=== PATIENT | female | born 1990 | race Caucasian/White ===

== ENCOUNTER 2018-09-12 15:15 | Inpatient (IN) ==
[2018-09-12 16:12] LABS: BASO# 0.04 X1000 (0.0-0.2); BASO% 0.2 % (0.0-0.8); EOS# 0.07 X1000 (0.0-0.7); EOS% 0.4 % (0.0-10.0); HEMOGLOBIN 15.2 g/dL (12.0-16.0); IMM GRAN# 0.05 X1000 (0.0-0.04); IMM GRAN% 0.3 % (0.0-0.5); LYMPH# 1.97 X1000 (1.2-3.4); MCH 28.2 PG (27-31); MCHC 35.3 g/dL (33-37); MCV 79.8 FL (81-99); MONO# 2.95 X1000 (0.11-0.59); MONO% 14.9 % (1.7-9.3); MPV 10.9 FL (7.4-10.4); NEUT# 14.68 X1000 (1.4-6.5); NEUT% 74.2 % (42.2-75.2); PLT 356 X1000 (130-400); RBC 5.39 XMIL (4.2-5.4); RDW 12.3 % (11.5-14.5); WBC 19.76 X1000 (4.8-10.8)
[2018-09-12 16:25] LABS: URINE SOURCE CLEAN CATCH
[2018-09-12 16:30] LABS: BILIRUBIN URINE NEGATIVE (NEGATIVE); BLOOD URINE TRACE (NEGATIVE); COLOR ORANGE; GLUCOSE URINE >1000 mg/dL (NEGATIVE); KETONE URINE 10 mg/dL (NEGATIVE); LEUKOCYTES URINE LARGE (NEGATIVE); NITRITE URINE NEGATIVE (NEGATIVE); PROTEIN URINE 50 mg/dL (NEGATIVE); SP GRAVITY URINE 1.032; TURBIDITY URINE TURBID (CLEAR); UROBILINOGEN URINE NORMAL (NORMAL)
[2018-09-12 16:30] LABS: AGAP 15; ALB/GLOB RATIO 1.2; ALBUMIN 4.3 g/dL (3.5-5.0); ALKALINE PHOSPHATASE 87 U/L (32-104); BUN 8 mg/dL (8-22); CALCIUM 9.1 mg/dL (8.8-10.2); CHLORIDE 95 mmol/L (98-107); COSMO 283; CREATININE 0.6 mg/dL (0.5-0.9); ESTIMATED GFR > 60; GLUCOSE 398 mg/dL (70-104); GOT 9 U/L (10-30); GPT 14 U/L (10-36); POTASSIUM 3.9 mmol/L (3.5-5.1); SODIUM 134 mmol/L (136-145); TCO2 24 mmol/L (25-35); TOTAL BILIRUBIN 1.21 mg/dL (0.20-1.00)
[2018-09-12 16:35] LABS: UR EPITHELIAL CELLS >10 /HPF (<10); URINE BACTERIA 4+ /HPF; URINE RBC <10 /HPF (<10); URINE WBC TNTC /HPF (<10)
[2018-09-12 16:41] LABS: URINE CRYSTALS NONE SEEN; URINE YEAST NONE SEEN
[2018-09-12 16:46] LABS: UR AMPHETAMINES QUAL PRESUMPTIVE POSITIVE (NONE DETECT); UR BARBITUATES QUAL NONE DETECTED (NONE DETECT); UR BENZODIAZEPIN QUAL NONE DETECTED (NONE DETECT); UR CANNABINOIDS QUAL NONE DETECTED (NONE DETECT); UR COCAINE QUAL NONE DETECTED (NONE DETECT); UR METHADONE QUAL NONE DETECTED (NONE DETECT); UR OPIATES QUAL NONE DETECTED (NONE DETECT); UR OXYCODONE QUAL NONE DETECTED (NONE DETECT); UR PCP QUAL NONE DETECTED (NONE DETECT)
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
[2018-09-12] MEDS ORDERED: NS 1,000 ML IV ONE ×2 (18:04→23:55)
[2018-09-12] MEDS ORDERED: HUMULIN R IV ONE (18:04)
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
[2018-09-12] MEDS ORDERED: ZOFRAN IV ONE (19:34)
[2018-09-12] MEDS ORDERED: ATIVAN IM ONE ×2 (20:28→23:41)
[2018-09-12] MEDS ORDERED: PHENERGAN IM ONE (23:41)
[2018-09-12] MEDS ORDERED: BENADRYL IV ONE (23:55)
[2018-09-13] MEDS ORDERED: ROCEPHIN 1 GM in NS 50 ML IV ONE (02:00)
[2018-09-13] MEDS ORDERED: NS 2,000 ML IV ONE (02:26)
[2018-09-13] MEDS ORDERED: ATIVAN IV ONE (03:33)
[2018-09-13] MEDS ORDERED: PHENOBARBITAL IV ONE ×2 (04:43→05:30)
[2018-09-13 05:29] LABS: HEMOGLOBIN A1C 9.4 % (4.8-6.0)
[2018-09-13] MEDS ORDERED: ZOFRAN IV PRN (05:29)
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
--- NOTE | 2018-09-13 08:03 | EKG Report ---
Test Performed on : 09/12/2018 3:32:20 PM Test Reason : TACHYCARDIA Blood Pressure : / mmHG Vent. Rate : 135 BPM Atrial Rate : 135 BPM P-R Int : 134 ms QRS Dur : 076 ms QT Int : 294 ms P-R-T Axes : 090 090 090 degrees QTc Int : 441 ms Suspect arm lead reversal, interpretation assumes no reversal Sinus tachycardia. Rightward axis Borderline ECG When compared with ECG of 12-SEP-2018 15:31, (Unconfirmed) No significant change was found Unconfirmed Result
[2018-09-13 10:15] LABS: BASO# 0.03 X1000 (0.0-0.2); BASO% 0.2 % (0.0-0.8); EOS# 0.02 X1000 (0.0-0.7); EOS% 0.1 % (0.0-10.0); HEMATOCRIT 38.5 % (37.0-47.0); HEMOGLOBIN 13.4 g/dL (12.0-16.0); IMM GRAN# 0.05 X1000 (0.0-0.04); IMM GRAN% 0.3 % (0.0-0.5); LYMPH# 2.07 X1000 (1.2-3.4); LYMPH% 12.3 % (20.5-51.1); MCH 28.6 PG (27-31); MCHC 34.8 g/dL (33-37); MCV 82.3 FL (81-99); MONO# 0.84 X1000 (0.11-0.59); MPV 10.8 FL (7.4-10.4); NEUT# 13.76 X1000 (1.4-6.5); NEUT% 82.1 % (42.2-75.2); PLT 273 X1000 (130-400); RBC 4.68 XMIL (4.2-5.4); RDW 12.3 % (11.5-14.5); WBC 16.77 X1000 (4.8-10.8)
[2018-09-13 10:29] LABS: AGAP 12; BUN 9 mg/dL (8-22); CALCIUM 8.1 mg/dL (8.8-10.2); CHLORIDE 102 mmol/L (98-107); COSMO 280; CREATININE 0.5 mg/dL (0.5-0.9); ESTIMATED GFR > 60; GLUCOSE 201 mg/dL (70-104); MAGNESIUM 1.6 mg/dL (1.5-2.7); SODIUM 138 mmol/L (136-145); TCO2 24 mmol/L (25-35)
[2018-09-13] MEDS: HUMALOG SUBQ SCH ×4 (11:08→21:04)
[2018-09-13] MEDS: NS 1,000 ML IV SCH ×3 (11:15→21:04)
[2018-09-13] MEDS: ATIVAN IV PRN ×4 (11:16→21:05)
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
[2018-09-13] MEDS: GEODON IM PRN (17:45)
[2018-09-13] MEDS: STERILE WATER INJ. INJ PRN (17:46)
[2018-09-14] MEDS: ROCEPHIN 1 GM in NS 50 ML IV SCH (02:59)
[2018-09-14] MEDS: GEODON IM PRN (03:00)
[2018-09-14] MEDS: NS 1,000 ML IV SCH ×3 (05:25→20:34)
[2018-09-14] MEDS: HUMALOG SUBQ SCH ×4 (06:31→20:34)
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
[2018-09-14] MEDS: TYLENOL PO PRN (20:34)
[2018-09-15] MEDS: ROCEPHIN 1 GM in NS 50 ML IV SCH (01:48)
[2018-09-15] MEDS: NS 1,000 ML IV SCH ×4 (05:45→23:21)
[2018-09-15] MEDS: HUMALOG SUBQ SCH ×4 (06:20→21:58)
[2018-09-15 06:25] LABS: BASO# 0.02 X1000 (0.0-0.2); BASO% 0.2 % (0.0-0.8); EOS# 0.13 X1000 (0.0-0.7); EOS% 1.4 % (0.0-10.0); HEMATOCRIT 33.7 % (37.0-47.0); HEMOGLOBIN 11.5 g/dL (12.0-16.0); IMM GRAN# 0.02 X1000 (0.0-0.04); IMM GRAN% 0.2 % (0.0-0.5); LYMPH# 2.32 X1000 (1.2-3.4); LYMPH% 25.4 % (20.5-51.1); MCH 28.3 PG (27-31); MCHC 34.1 g/dL (33-37); MONO# 1.34 X1000 (0.11-0.59); MONO% 14.7 % (1.7-9.3); MPV 11.1 FL (7.4-10.4); NEUT% 58.1 % (42.2-75.2); PLT 260 X1000 (130-400); RBC 4.06 XMIL (4.2-5.4); RDW 12.2 % (11.5-14.5); WBC 9.13 X1000 (4.8-10.8)
[2018-09-15 06:40] LABS: AGAP 12; ALB/GLOB RATIO 0.9; ALBUMIN 2.6 g/dL (3.5-5.0); ALKALINE PHOSPHATASE 51 U/L (32-104); BUN 4 mg/dL (8-22); CALCIUM 7.3 mg/dL (8.8-10.2); CHLORIDE 103 mmol/L (98-107); COSMO 282; CREATININE 0.4 mg/dL (0.5-0.9); ESTIMATED GFR > 60; GLUCOSE 263 mg/dL (70-104); GOT 8 U/L (10-30); GPT 11 U/L (10-36); POTASSIUM 3.2 mmol/L (3.5-5.1); SODIUM 138 mmol/L (136-145); TCO2 23 mmol/L (25-35); TOTAL BILIRUBIN 0.23 mg/dL (0.20-1.00); TOTAL PROTEIN 5.6 g/dL (6.3-8.3)
[2018-09-15] MEDS ORDERED: KLOR-CON PO ONE (14:35)
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
[2018-09-15] MEDS: DUONEB (A & A) INH SCH ×3 (15:44→22:59)
[2018-09-15] MEDS: TYLENOL PO PRN (19:56)
[2018-09-16] MEDS: ROCEPHIN 1 GM in NS 50 ML IV SCH (02:45)
[2018-09-16] MEDS: NS 1,000 ML IV SCH ×3 (04:56→15:37)
[2018-09-16] MEDS: DUONEB (A & A) INH SCH ×5 (05:21→20:03)
[2018-09-16] MEDS: HUMALOG SUBQ SCH ×4 (06:40→20:49)
[2018-09-16] MEDS: ATIVAN IV PRN ×2 (14:20→18:31)
[2018-09-16] MEDS: TYLENOL PO PRN (20:48)
[2018-09-17] MEDS: NS 1,000 ML IV SCH ×3 (00:30→08:33)
[2018-09-17] MEDS: ROCEPHIN 1 GM in NS 50 ML IV SCH (02:14)
[2018-09-17] MEDS: DUONEB (A & A) INH SCH ×7 (02:41→23:02)
[2018-09-17] MEDS: HUMALOG SUBQ SCH ×4 (06:31→22:56)
[2018-09-17] MEDS: ATIVAN IV PRN (08:34)
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
[2018-09-17] MEDS: GEODON IM PRN (20:03)
[2018-09-17] MEDS: TYLENOL PO PRN (20:03)
[2018-09-18] MEDS: DUONEB (A & A) INH SCH ×5 (03:27→20:36)
[2018-09-18] MEDS: HUMALOG SUBQ SCH ×4 (06:19→21:06)
[2018-09-18 07:35] LABS: BASO# 0.03 X1000 (0.0-0.2); BASO% 0.4 % (0.0-0.8); EOS# 0.13 X1000 (0.0-0.7); EOS% 1.8 % (0.0-10.0); HEMATOCRIT 32.5 % (37.0-47.0); HEMOGLOBIN 10.9 g/dL (12.0-16.0); IMM GRAN# 0.03 X1000 (0.0-0.04); IMM GRAN% 0.4 % (0.0-0.5); LYMPH# 3.23 X1000 (1.2-3.4); LYMPH% 44.1 % (20.5-51.1); MCH 28.3 PG (27-31); MCHC 33.5 g/dL (33-37); MCV 84.4 FL (81-99); MONO# 0.89 X1000 (0.11-0.59); MONO% 12.2 % (1.7-9.3); MPV 10.6 FL (7.4-10.4); NEUT# 3.01 X1000 (1.4-6.5); NEUT% 41.1 % (42.2-75.2); PLT 361 X1000 (130-400); RBC 3.85 XMIL (4.2-5.4); WBC 7.32 X1000 (4.8-10.8)
[2018-09-18 07:51] LABS: AGAP 10; ALBUMIN 2.9 g/dL (3.5-5.0); BUN 4 mg/dL (8-22); CALCIUM 8.2 mg/dL (8.8-10.2); CHLORIDE 103 mmol/L (98-107); COSMO 289; CREATININE 0.4 mg/dL (0.5-0.9); ESTIMATED GFR > 60; GLUCOSE 188 mg/dL (70-104); PHOSPHORUS 3.9 mg/dL (2.7-4.5); POTASSIUM 3.2 mmol/L (3.5-5.1); SODIUM 144 mmol/L (136-145); TCO2 31 mmol/L (25-35)
[2018-09-18] MEDS: LEVAQUIN PO SCH (08:59)
[2018-09-18] MEDS: GEODON IM PRN ×2 (12:51→18:34)
[2018-09-18] MEDS: STERILE WATER INJ. INJ PRN ×2 (12:52→18:35)
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
[2018-09-18] MEDS: TYLENOL PO PRN (18:33)
[2018-09-19] MEDS: DUONEB (A & A) INH SCH ×5 (05:57→21:50)
[2018-09-19] MEDS: HUMALOG SUBQ SCH ×4 (06:00→21:05)
[2018-09-19] MEDS: LEVAQUIN PO SCH (08:17)
[2018-09-19] MEDS ORDERED: INSULIN PEN NEEDLES ONE (08:31)
[2018-09-19] MEDS: STERILE WATER INJ. INJ PRN (08:40)
[2018-09-19] MEDS: GEODON IM PRN (08:41)
[2018-09-19] MEDS ORDERED: LANTUS INSULIN SUBQ SCH (09:00)
[2018-09-19] MEDS ORDERED: PROZAC PO SCH (10:45)
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
[2018-09-19 15:28] VITALS: BP 107/72
[2018-09-19] MEDS ORDERED: DESYREL PO SCH (21:00)
[2018-09-19] MEDS ORDERED: KLONOPIN PO SCH (21:00)
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
== END 2018-09-19 22:38 | DRG 948 ==
LOC: SUPCPDRO → ED 15:15 → EDIPHOLD 09-13 05:56 → SUATTDRO 09-13 05:56 → ICU 09-13 09:58 → 3N 09-15 16:20
PROVIDERS: ATTEND Internal Medicine
CPT/HCPCS: 51702; 70450; 71020; 71046; 72125; 80048; 80053; 80069; 80101; 80301; 80307; 80320; 80324; 80345; 80346; 80353; 80358; 80361; 80365; 81001; 81025; 82055; 82550; 82948; 83036; 83605; 83735; 83992; 84443; 85025; 87040; 87077; 87088; 87186; 93005; 94640; 94761; 96361; 96365; 96366; 96372; 96375; 99285; A9270; G0431; G0434; G0479; G0480; G6040; J0696; J1200; J1815; J2060; J2405; J2550; J2560; J3486; J7030; XXXXX